=== PATIENT | male | born 1990 | race African-American/Black ===

== ENCOUNTER 2017-08-16 14:05 | Emergency (ER) | payer BC, MEDICAID ==
[~2017-08-16] VITALS: Ht 172.7 cm; Wt 83.0 kg
[2017-08-16] MEDS ORDERED: HYDROCODONE/ACETAMINOPHEN 5/325MG TABLET PO ONE (17:15)
[2017-08-16] MEDS ORDERED: IBUPROFEN 600MG TABLET PO ONE (20:00)
[2017-08-16] MEDS ORDERED: LIDOCAINE HCL 1% 20ML VIAL (Pyxis) INJ INFIL ONE (20:30)
[2017-08-16] MEDS ORDERED: LIDOCAINE HCL/PF 1% 10 MG/ML 5ML VIAL IJ NR (20:30)
[2017-08-16 22:01] VITALS: BP 115/80
== END 2017-08-16 22:01 | disposition home or self-care (01) ==
LOC: ER 14:05
DX: S01.412A Laceration without foreign body of left cheek and temporomandibular area, initial encounter (principal); W26.8XXA Contact with other sharp object(s), not elsewhere classified, initial encounter; Y93.89 Activity, other specified; Y92.89 Other specified places as the place of occurrence of the external cause; Y99.8 Other external cause status
CPT/HCPCS: 12011; 70450; 70486; 70490; 71250; 99291; J3490; Z7610